=== PATIENT | male | born 1975 | race Hispanic/Latino ===

== ENCOUNTER 2017-02-07 15:33 | Emergency (ER) | payer BC, OTHER ==
[2017-02-07 15:50] VITALS: TEMP 97.5
--- NOTE | 2017-02-07 15:56 | ED.PDOC ---
History of Present Illness - General Chief Complaint: Upper Extremity Injury Stated Complaint: smashed right ring finger Time Seen by Provider: 02/07/17 15:46 Source: patient, RN notes reviewed, Vital Signs reviewed Exam Limitations: no limitations - History of Present Illness Initial Comments: Patient comes in with an injury to his right ring finger. Patient reports he smashed his finger with a spare tire. No numbness or tingling. + bleeding and pain. Occurred: just prior to arrival Pain - Upper Extremity: moderate: Hand, left - ring finger Method of Injury: direct blow Improving Factors: rest, other - pressure Worsening Factors: movement Allergies/Adverse Reactions: Allergies NO KNOWN ALLERGY Allergy (Verified 10/18/15 09:13) Home Medications: Ambulatory Orders NK [NK] 10/18/15 Review of Systems - Review of Systems Constitutional: States: no symptoms reported Cardiology: States: no symptoms reported Musculoskeletal: States: see HPI Skin: States: see HPI Neurological: States: no symptoms reported. Denies: numbness, paresthesia, tingling, weakness All other Systems: No Change from Baseline Past Medical History (General) - Patient Medical History Hx Seizures: No Hx Stroke: No Hx Cardiac Disorders: No Hx Congestive Heart Failure: No Hx Hypertension: No Hx Diabetes: No Surgical History: no surgical history - Vaccination History Hx Tetanus, Diphtheria Vaccination: - unknown Hx Influenza Vaccination: No Hx Pneumococcal Vaccination: No - Social History Hx Tobacco Use: Yes Hx Alcohol Use: Yes - occ Hx Substance Use: No Hx Depression: No Family Medical History - Family History Mother Hx Family Cancer: Yes Father Family History: Unknown Living Status: Unknown Hx Family Diabetes: Yes Physical Exam - Physical Exam General Appearance: Alert, Comfortable, No apparent distress, Well Developed, Well Groomed, Well Hydrated, Well Nourished Cardiovascular/Respiratory: normal peripheral pulses, no respiratory distress Elbow/Forearm Exam: normal inspection, non-tender, no evidence of injury, normal ROM Wrist Exam: normal inspection, non-tender, no evidence of injury, normal ROM Hand Exam: laceration - Right distal ring finger, soft tissue tenderness, swelling - R index finger: normal sensation, brisk capillary refill. FROM Neuro/Tendon: normal sensation, normal motor functions, normal tendon functions , no evidence tendon injury Mental Status: alert, oriented x 3 Skin Exam: normal color, warm/dry Comments: Vital Signs 02/07/17 15:47 Temperature 97.5 F L Pulse Rate [ 67 Right Brachial] Respiratory 16 Rate Blood Pressure 150/92 [Right Arm] O2 Sat by Pulse 98 Oximetry Procedures - Laceration/Wound Repair Right Distal Dorsal Finger Wound Length (cm): 1.5 - ring finger Wound's Depth, Shape: superficial, linear, nail-avulsed - Prox. lateral nail broken, contused tissue Wound Explored: Lateral 1/2 of nail removed Betadine Prep?: No - Soaked in Hibiclens and saline Anesthesia: 1% Lidocaine Volume Anesthetic (cc's): 5 Wound Debrided: moderate - Removed 1/2 of nail Wound Repaired With: sutures Suture Size/Type: 5:0, prolene Number of Sutures: 3 Layer Closure?: No Sterile Dressing Applied?: Yes Splint Applied?: No Sling Applied?: No Departure - Departure Clinical Impression: Laceration of right ring finger with damage to nail w/o foreign body Qualifiers: Encounter type: initial encounter Qualified Code(s): S61.314A - Laceration without foreign body of right ring finger with damage to nail, initial encounter Time of Disposition: 17:08 Disposition: Discharge to Home or Self Care Condition: Good Departure Forms: ED Discharge - Pt. Copy, Patient Portal Self Enrollment Instructions: DI for Laceration Repair -- Simple, DI for Laceration Repair -- Finger Diet: resume usual diet Activity: increase activity as tolerated Home Medications: Ambulatory Orders NK [NK] 10/18/15 Additional Instructions: Keep wound dry X 48 hours then no soaking until sutures come out Dress with antibiotic ointment twice daily Suture removal in 7 days. Keep wound clean and covered
[2017-02-07] MEDS ORDERED: CHLORHEXIDINE GLUCONATE 4 % 15 ML UD TOP ONE (16:03)
--- NOTE | 2017-02-07 16:07 | RAD ---
3 views of the right fourth finger. Indication: smashed distal ring finger Comparison: None. Impression: No acute fracture or malalignment of the fourth digit. Soft tissue swelling ulnar margin distal aspect right fourth digit. Questionable 3 millimetric foreign bodies at this site, which may relate to bandaging. These are best visualized on the oblique view. Electronically signed by: Justo Mejia MD 02/07/2017 4:06 PM [facility]
[2017-02-07] MEDS ORDERED: LIDOCAINE 1% 10 ML VIAL INJ ONE (16:16)
[2017-02-07] MEDS ORDERED: NEOMYCIN-BACITRACIN-POLYMYXIN 0.9 GM UD TOP ONE ×2 (16:41→17:07)
[2017-02-07] MEDS ORDERED: TETANUS,DIPHTHERIA,PERTUSSIS 1 EA SYG IM ONE (17:07)
[2017-02-07 17:21] VITALS: BP 135/92; O2SAT 97
== END 2017-02-07 17:18 | disposition home or self-care (01) ==
LOC: ER 15:33
DX: S61.314A Laceration without foreign body of right ring finger with damage to nail, initial encounter (principal); Z87.891 Personal history of nicotine dependence; W23.0XXA Caught, crushed, jammed, or pinched between moving objects, initial encounter; Y92.9 Unspecified place or not applicable

== ENCOUNTER 2018-01-25 09:11 | Emergency (ER) | payer BC, OTHER ==
[2018-01-25] MEDS ORDERED: CHLORHEXIDINE GLUCONATE 4 % 15 ML UD TOP ONE (09:17)
[2018-01-25] MEDS ORDERED: LIDOCAINE 1% 10 ML VIAL INJ ONE (09:18)
[2018-01-25] MEDS ORDERED: TETANUS,DIPHTHERIA,PERTUSSIS 1 EA SYG IM ONE (09:19)
--- NOTE | 2018-01-25 09:27 | ED.PDOC ---
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 Timing/Duration: just prior to arrival Severity: moderate Location: extremities - left forearm Improving Factors: nothing Worsening Factors: movement Associated Symptoms: other - see hpi Allergies/Adverse Reactions: Allergies NO KNOWN ALLERGY Allergy (Verified 10/18/15 09:13) Home Medications: Ambulatory Orders NK [NK] 10/18/15 Review of Systems - Review of Systems Constitutional: States: no symptoms reported EENTM: States: no symptoms reported Respiratory: States: no symptoms reported Cardiology: States: no symptoms reported Gastrointestinal/Abdominal: States: no symptoms reported Genitourinary: States: no symptoms reported Musculoskeletal: States: no symptoms reported Skin: States: see HPI Neurological: States: no symptoms reported Endocrine: States: no symptoms reported Past Medical History (General) - Patient Medical History Hx Seizures: No Hx Stroke: No Hx Cardiac Disorders: No Hx Congestive Heart Failure: No Hx Hypertension: No Hx Diabetes: No Surgical History: no surgical history - Vaccination History Hx Tetanus, Diphtheria Vaccination: - unknown Hx Influenza Vaccination: No Hx Pneumococcal Vaccination: No - Social History Hx Tobacco Use: Yes Hx Alcohol Use: Yes - social Hx Substance Use: No Hx Depression: No Family Medical History - Family History Mother Hx Family Diabetes: Yes - dad,brother Hx Family Cancer: Yes Father Family History: Unknown Living Status: Unknown Hx Family Diabetes: Yes Physical Exam - Physical Exam General Appearance: Alert, Comfortable, No apparent distress Eyes, Ears, Nose, Throat Exam: normal ENT inspection Neck: non-tender, full range of motion, supple Cardiovascular/Chest: normal peripheral pulses, regular rate, rhythm, no murmur Respiratory: chest non-tender, lungs clear, normal breath sounds Gastrointestinal/Abdominal: non tender, soft, no organomegaly Back Exam: normal inspection Extremity: normal range of motion, no pedal edema, no calf tenderness Neurologic: alert, oriented x 3 Skin Exam: warm/dry, normal color, other - laceration 2 cm left forearm Skin Problem Location: upper extremities - left forearm Lymphatic: no adenopathy Progress - Progress Progress: 01/25/18 09:30 Vital Signs - 8 hr 01/25/18 09:15 Temperature 97.6 F Pulse Rate [ 72 Left Radial] Respiratory 18 Rate Blood Pressure 147/59 [Left Arm] O2 Sat by Pulse 97 Oximetry 01/25/18 10:26 Boostrix Tdap given in er;unable to order it computer - EKG/XRAY/CT XRAY: forearm - left -no FX;no FB Procedures - Laceration/Wound Repair Left Arm Wound Length (cm): 1.5 Wound's Depth, Shape: irregular Wound Explored: no foreign body removed Irrigated w/ Saline (cc's): 50 Betadine Prep?: No - hibiclens Anesthesia: 1% Lidocaine Volume Anesthetic (cc's): 5 Wound Repaired With: sutures Suture Size/Type: 4:0, prolene Number of Sutures: 4 Layer Closure?: No Sterile Dressing Applied?: Yes Departure - Departure Clinical Impression: Fall against object Laceration of left forearm without complication Qualifiers: Encounter type: initial encounter Qualified Code(s): S51.812A - Laceration without foreign body of left forearm, initial encounter Time of Disposition: 10:22 Disposition: Discharge to Home or Self Care Condition: Good Departure Forms: ED Discharge - Pt. Copy, ED Discharge - Work Release, Patient Portal Self Enrollment Instructions: DI for Laceration Repair Referrals: HAYLEY LAUREANO [Primary Care Provider] - 1-2 Weeks Home Medications: Ambulatory Orders NK [NK] 10/18/15 Additional Instructions: NO lifting more than 20 pounds left forearm for today only;Removal of sutures 06 February [facility];return to er as needed
[2018-01-25] MEDS ORDERED: CEPHALEXIN MONOHYDRATE 500 MG CAP PO ONE (09:30)
--- NOTE | 2018-01-25 09:39 | RAD ---
EXAM DESCRIPTION: Forearm,Left CLINICAL HISTORY: laceration, fell on metal COMPARISON: None. TECHNIQUE: 2 views left FINDINGS: I see no bone or joint abnormality. A soft tissue injury is observed along the posterior proximal forearm. No foreign body is observed in the soft tissues IMPRESSION: No fracturing is detected. Electronically signed by: John Schultz MD 01/25/2018 9:38 AM [facility]
[2018-01-25 10:42] VITALS: BP 144/64; TEMP 97; O2SAT 98
== END 2018-01-25 10:31 | disposition home or self-care (01) ==
LOC: ER 09:11
DX: S51.812A Laceration without foreign body of left forearm, initial encounter (principal); Z23 Encounter for immunization; W01.198A Fall on same level from slipping, tripping and stumbling with subsequent striking against other object, initial encounter; Y99.0 Civilian activity done for income or pay; Y92.69 Other specified industrial and construction area as the place of occurrence of the external cause; Z87.891 Personal history of nicotine dependence